=== PATIENT | female | born 2000 | race Hispanic/Latino ===

== ENCOUNTER 2022-04-13 12:13 | Emergency (ER) | payer OTHER ==
[~2022-04-13] VITALS: Ht 162.6 cm; Wt 61.3 kg
[2022-04-13] MEDS ORDERED: PHENAZOPYRIDINE 100 MG TAB PO ONE (14:55)
[2022-04-13] MEDS ORDERED: NITROFURANTOIN (MACROBID) 100 MG CAP PO ONE (14:55)
[2022-04-13] MEDS ORDERED: PYRI1TAB5 PO (14:56)
[2022-04-13] MEDS ORDERED: NITR1CAP11 PO (14:56)
[2022-04-13 15:13] VITALS: BP 113/71
== END 2022-04-13 15:15 | disposition home or self-care (01) ==
LOC: M ED 12:13
DX: N39.0 Urinary tract infection, site not specified (principal)

== ENCOUNTER → 2022-09-01 | Outpatient (REF) | payer OTHER ==
[~2022-09-01] MED LIST: NITR1CAP11 PO; PYRI1TAB5 PO
== END ==
LOC: M WUC 21:08
PROVIDERS: ATTEND Physician Assistant
DX: N39.0 Urinary tract infection, site not specified (principal)

== ENCOUNTER 2024-05-25 21:36 | Emergency (ER) | payer OTHER ==
[~2024-05-25] VITALS: Ht 162.6 cm; Wt 62.1 kg
[~2024-05-25 21:36] MED LIST changes: +NITR100C3 PO; -NITR1CAP11 PO
[2024-05-25 21:38] VITALS: BP 121/69; TEMP 98; O2SAT 100
[2024-05-26] MEDS ORDERED: CEPH500C PO (01:46)
[2024-05-26] MEDS: CEPHALEXIN 500 MG CAP PO ONE (01:54)
== END 2024-05-26 02:07 | disposition home or self-care (01) ==
LOC: M ED 21:36
DX: L03.115 Cellulitis of right lower limb (principal); Z79.2 Long term (current) use of antibiotics